=== PATIENT | male | born 1985 | race African-American/Black ===

== ENCOUNTER 2016-11-23 11:09 | Emergency (ER) | payer MEDICAID ==
--- NOTE | 2016-11-23 11:32 | ED Physician Chart ---
Chief Complaint/HPI - Patient Information Date Seen:: 11/23/16 Time Seen:: 11:15 Chief Complaint:: Left Eyelid Redness History of Present Illness:: Onset x 10 months [employer] of intermittent left lower eyelid swelling and redness; denies visual loss, visual changes, eye/ocular pain, ocular discharge, FB exposure, FB sensation, photophobia, H/As, fever, chills, neck pain, C/P, SOB, Abd. pain, paresthesias, vertigo, gait changes, weakness, or dizziness; pt's last tetanus shot: < 5 years; UTD Allergies:: Allergies Allergy/AdvReac Type Severity Reaction Status Date / Time No Known Allergies Allergy Verified 11/23/16 11:16 Vitals:: Vital Signs - 8 hr 11/23/16 11/23/16 11:17 11:19 Temp 97.8 F 97.8 F HR 69 66 RR 15 18 BP 157/86 157/86 O2 Sat % 98 97 Historian:: Patient, Medical Records Review:: Nurse's Note Reviewed Review of Systems - Review of Systems General/Constitutional: Fever, Chills, No weight loss, No weakness, No diaphoresis, No edema, No loss of appetite Skin: Skin lesions, Rash, No bruising Head: No headache, No light-headedness Eyes: No loss of vision, No pain, No diplopia ENT: No earache, No nasal drainage, No sore throat, No tinnitus Neck: No neck pain, No swelling, No thyromegaly, No stiffness, No mass noted Cardio Vascular: No chest pain, No palpitations, No PND, No orthopnea, No edema Pulmonary: No SOB, No cough, No sputum, No wheezing GI: Nausea, Vomiting, Diarrhea, No pain, No melena, No hematochezia, No constipation, No hematemesis G/U: No dysuria, No frequency, No hematuria Musculoskeletal: No bone or joint pain, No back pain, No muscle pain Endocrine: No polyuria, No polydipsia Psychiatric: No prior psych history, No depression, No anxiety, No suicidal ideation Hematopoietic: No bruising, No lymphadenopathy Allergic/Immuno: No urticaria, No angioedema Neurological: No syncope, No focal symptoms, No weakness, No paresthesia, No headache, No seizure, No dizziness, No confusion, No vertigo Past Medical History - Past Medical History Obtainable: Yes Past Medical History: No significant medical hx Family History: HTN Social History: Non Smoker, No Alcohol, No Drug Use, Single Surgical History: None Psychiatricy History: None Medication: Reviewed Family Medical History - Family Member mother History Unknown: Yes Physical Exam - Physical Examination General/Constitutional: Awake, Well-developed, well-nourished, Alert, No distress, GCS 15, Non-toxic appearing, Ambulatory Head: Atraumatic Eyes: Lids, conjuctiva normal, PERRL, EOMI Other Eyes comments:: Eye Exam: Va: 20/20 OU; Left Lower Inner Eyelid Sty/Chalazion/Hordelum; no FBs; no cellulitis; PERRLA; Fundi: benign; EOMs: WNL; Corneas: clear; no FBs; no abrasions; Conjunctiva: WNL; no FBs; otherwise unremarkable exam Skin: Nl inspection, No rash, No skin lesions, No ecchymosis, Well hydrated, No lymphadenopathy ENMT: External ears, nose nl, Nasal exam nl, Lips, teeth, gums nl Neck: Nontender, Full ROM w/o pain, No JVD, No nuchal rigidity, No bruit, No mass, No stridor Respiratory: Nl effort/Exclusion, Clear to Auscultation, No Wheeze/Rhonchi/Rales Cardio Vascular: RRR, No murmur, gallop, rubs, NL S1 S2 GI: No tenderness/rebounding/guarding, No organomegaly, No hernia, Normal BS's, Nondistended, No mass/bruits, No McBurney tenderness : No CVA tenderness Extremities: No tenderness or effusion, Full ROM, normal strength in all extremities, No edema, Normal digits & nails Neuro/Psych: Alert/oriented, DTR's symmetric, Normal sensory exam, Normal motor strength, Judgement/insight normal, Mood normal, Normal gait, No focal deficits Misc: normal gait, Normal back, No paraspinal tenderness ED Septic Shock - . Is Septic Shock (SBP<90, OR Lactate>4 mmol\L) present?: No - <6hrs of presentation: Vital Signs: Vital Signs - 8 hr 11/23/16 11/23/16 11:17 11:19 Temp 97.8 F 97.8 F HR 69 66 RR 15 18 BP 157/86 157/86 O2 Sat % 98 97 Reassessment (Disposition) - Reassessment Reassessment Condition:: Improved - Diagnosis Diagnosis:: Left Lower Eyelid Chalazion/Sty/Hordelum; Left Eyelid Redness - Aftercare/Follow up Instructions Aftercare/Follow-Up Instructions:: Counseled pt regarding lab results/diagnosis & need follow up, Refer to Discharge Instructions, Counseled pt & family regarding lab results/diagnosis & need follow up Medication Prescribed:: Rx: Tobramycin Ophthalmic Eye Drops: one drop to the affected eye (OS) qid x 7 days; Warm Compresses to the Left Eyelid - Patient Disposition Discharge/Transfer:: Home Condition at Disposition:: Stable (RTER prn if existing s/s reoccur and/or get worse and/or any other new s/s occur; ACIs given for all above Dx; Refer to Junior Net Developer/Support Associate/Envelope Machine Adjuster ROLANDA; F/U with PMD in one day or prn; RTER prn if concerned), Improved ED Discharge Plan - Patient Disposition Instructions: Stefany Additional Instructions: 1. Follow up with your Primary care Physician in 1-2 days. 2. Take medication as prescribed. 3. If symptoms worsen, return to the Emergency Department for further evaluation.
== END 2016-11-23 11:20 | disposition home or self-care (01) ==
LOC: ER 11:09
DX: H57.8 Other specified disorders of eye and adnexa (principal)
CPT/HCPCS: Z7502